=== PATIENT | female | born 2000 | race Caucasian/White ===

== ENCOUNTER 2025-01-14 10:43 | Emergency (ER) | payer OTHER ==
[~2025-01-14] VITALS: Ht 180.3 cm; Wt 120.2 kg
[2025-01-14 10:49] VITALS: BP 126/72; TEMP 98.9
--- NOTE | 2025-01-14 10:49 | NUR ---
"Cold soreon lips. Worse now. Painful"
[2025-01-14] MEDS ORDERED: MUPI15CR TP (11:48)
[2025-01-14 11:57] VITALS: O2SAT 99
--- NOTE | 2025-01-14 11:59 | NUR ---
Patient discharged to home in stable condition. Written and verbal after care instructions given. Patient verbalizes understanding of instruction.
== END 2025-01-14 11:59 | disposition home or self-care (01) ==
LOC: ER 10:46
DX: L01.00 Impetigo, unspecified (principal); B00.1 Herpesviral vesicular dermatitis; Z91.048 Other nonmedicinal substance allergy status